=== PATIENT | male | born 1955 | race Caucasian/White ===

== ENCOUNTER 2023-05-30 09:45 | Day surgery (SDC) | payer MEDICARE, BC ==
[~2023-05-30 09:45] MED LIST: LACTATED RINGERS 1,000 ML IV SCH; LIDOCAINE 1% (10MG/ML) FOR IV START INTRADERMA PRN
[2023-05-30] MEDS ORDERED: PROPOFOL 10 MG/ML 20 ML VIAL IV ONE (10:34)
[2023-05-30 10:42] VITALS: TEMP 97.6
--- NOTE | 2023-05-30 10:53 | P.PCN ---
Date of Procedure: 05/30/23 Procedure(s) Performed: BRIEF HISTORY: Patient is a 68-year-old pleasant male scheduled for an elective colonoscopy as a part of screening for colon cancer. He has family history of colon cancer diagnosed in her mother at age 80. PROCEDURE PERFORMED: Colonoscopy snare polypectomy. PREOPERATIVE DIAGNOSIS: Screening for colon cancer and family history of colon cancer. IV sedation per Anesthesia. PROCEDURE: After informed consent was obtained, the patient, was brought into the endoscopy unit. IV sedation was administered by Anesthesia under continuous monitoring. Digital rectal examination was normal. Initially the Olympus CF-160 flexible video colonoscope was then inserted in the rectum, gradually advanced into the cecum without any difficulty. Careful examination was performed as the scope was gradually being withdrawn. Ileocecal valve and the appendiceal orifice were visualized and appeared normal. Prep was excellent. Mucosa of the cecum, appeared normal. Ascending colon there was a 1 mm flat polyp that was removed by snare polypectomy. In the hepatic flexure there was a 7 mm polyp removed by snare polypectomy. In the transverse colon there was a 1 cm polyp removed by snare polypectomy. Rest of the ascending colon, transverse colon, descending colon, sigmoid colon, and rectum appeared normal. Retroflexion was performed in the rectum and no lesions were seen. Moderate left-sided diverticulosis The patient tolerated the procedure well. IMPRESSION: 1 cm flat ascending colon polyp status post snare polypectomy 7 mm hepatic flexure polyp status post-polypectomy 1 cm transverse colon polyp status post snare polypectomy. Moderate left sided diverticulosis. RECOMMENDATIONS: Findings of this examination were discussed with the patient as well as his family. He was advised to follow with the biopsy results. If the biopsy results adenoma he can have a repeat colonoscopy in 3 years..
[2023-05-30 11:13] VITALS: RESP 16
[2023-05-30 11:42] VITALS: BP 123/77; PULSE 68
== END 2023-05-30 11:34 | disposition home or self-care (01) ==
LOC: ORWHC2ENDO 09:45
PROVIDERS: ATTEND Internal Medicine Gastroenterology
DX: Z12.11 Encounter for screening for malignant neoplasm of colon (principal); D12.2 Benign neoplasm of ascending colon; D12.3 Benign neoplasm of transverse colon; K57.30 Diverticulosis of large intestine without perforation or abscess without bleeding; Z80.0 Family history of malignant neoplasm of digestive organs; Z79.890 Hormone replacement therapy; Z79.899 Other long term (current) drug therapy; F17.200 Nicotine dependence, unspecified, uncomplicated; Z91.09 Other allergy status, other than to drugs and biological substances
CPT/HCPCS: 88305; 45385; J2704